=== PATIENT | female | born 1980 | race American Indian/Alaskan Native ===

== ENCOUNTER 2018-06-16 21:05 | Observation (INO) | payer MEDICAID ==
[2018-06-16 21:06] VITALS: BMI 25.9
[2018-06-16] MEDS ORDERED: Sodium Chloride 0.9% 1,000 ML IV ONE (22:31)
[2018-06-16 22:44] LABS: BASO # 0.1 K/uL (0.0-0.2); BASO % 0.5 % (0.0-2.0); EOS # 0.5 K/uL (0.0-0.7); EOS % 3.8 % (0.0-4.0); HEMOGLOBIN 13.8 g/dL (11.0-16.0); LYMPH % 22.3 % (20.0-40.0); MEAN CELL VOLUME 82.9 fL (81.0-99.0); MEAN CORPUSCULAR HEMOGLOBIN 28.4 pg (27.0-31.0); MEAN CORPUSCULAR HGB CONC 34.2 g/dL (33.0-37.0); MONO # 0.9 K/uL (0.0-0.8); MONO % 6.7 % (0.0-10.0); NEUT # 9.1 K/uL (1.8-7.0); NEUT % 66.7 % (50.0-75.0); NRBC % 0.1 % (0.0-2.0); RBC 4.87 Mil/uL (3.80-5.20); RED CELL DISTRIBUTION WIDTH 13.8 % (11.5-14.5); WHITE BLOOD COUNT 13.6 K/uL (4.8-10.8)
[2018-06-16 22:47] LABS: HCG,QUALITATIVE URINE NEGATIVE (NEGATIVE)
[2018-06-16] MEDS ORDERED: Sodium Chloride 0.9% 250 ML IV ONE (22:55)
[2018-06-16 23:00] LABS: SQUAMOUS EPITHIAL 2 /hpf (0-5); URINE BACTERIA RARE (<OCC); URINE BILIRUBIN NEGATIVE (NEGATIVE); URINE BLOOD 3+ (NEGATIVE); URINE CLARITY Clear (Clear); URINE COLOR Straw (YELLOW); URINE GLUCOSE (UA) NORMAL (Normal); URINE LEUKOCYTE ESTERASE NEG Leu/uL (Negative); URINE PROTEIN NEGATIVE (NEGATIVE); URINE UROBILINOGEN NORMAL mg/dL (0.2-1.0)
[2018-06-16 23:02] LABS: ALB/GLOB RATIO 1.4 (1.0-2.1); ALBUMIN 4.2 g/dL (3.5-5.0); ALT/SGPT 21 U/L (9-52); AST/SGOT 18 U/L (14-36); BLOOD UREA NITROGEN 9 mg/dL (7-17); CALCIUM 8.7 mg/dl (8.6-10.4); GFR NON-AFRICAN AMERICAN > 60
--- NOTE | 2018-06-16 23:02 | C.PDOC ---
History Of Present Illness 38 year old female, with no significant past medical history, presents to the ED for evaluation of left-sided flank and left upper and lower quadrant pain which began at around 1800 today. Patient states symptoms are constant. She notes she started her menses today. Patient denies fever, chills, nausea, vomiting, urinary symptoms or vaginal discharge. <Sofi Martinez - Last Filed: 06/17/18 00:18> History Per: Patient History/Exam Limitations: no limitations Onset/Duration Of Symptoms: Hrs Current Symptoms Are (Timing): Still Present Location Of Pain/Discomfort: Other (left upper and lower abdomen ) Radiation Of Pain To:: Flank (left) Quality Of Discomfort: "Pain" Associated Symptoms: denies: Fever, Chills, Nausea, Vomiting Additional History Per: Patient Abnormal Vaginal Bleeding: No <Sofi Martinez - Last Filed: 06/17/18 00:18> <Abraham Turcios - Last Filed: 06/17/18 00:33> Time Seen by Provider: 06/16/18 21:56 Chief Complaint (Nursing): Abdominal Pain Past Medical History Reviewed: Historical Data, Nursing Documentation, Vital Signs Vital Signs: Last Vital Signs Temp 98.8 F 06/16/18 21:16 Pulse 77 06/16/18 21:16 Resp 20 06/16/18 21:16 BP 103/77 06/16/18 21:16 Pulse Ox 98 06/16/18 21:16 - Medical History PMH: Back Problems Surgical History: Cholecystectomy - [facility] Procedures CLOSURE SKIN & SUBCUTANEOUS NEC (11/23/13) Family History: States: Unknown Family Hx - Social History Hx Tobacco Use: No Hx Alcohol Use: Yes Hx Substance Use: Yes - Immunization History Hx Tetanus Toxoid Vaccination: No Hx Influenza Vaccination: No Hx Pneumococcal Vaccination: No <Sofi Martinez - Last Filed: 06/17/18 00:18> Vital Signs: Last Vital Signs Temp 98.8 F 06/16/18 21:16 Pulse 77 06/16/18 21:16 Resp 20 06/16/18 21:16 BP 103/77 06/16/18 21:16 Pulse Ox 98 06/17/18 00:21 - [facility] Procedures CLOSURE SKIN & SUBCUTANEOUS NEC (11/23/13) <Abraham Turcios - Last Filed: 06/17/18 00:33> Review Of Systems Constitutional: Negative for: Fever, Chills Gastrointestinal: Positive for: Abdominal Pain (left upper and lower quadrants ). Negative for: Nausea, Vomiting Genitourinary: Negative for: Vaginal Discharge Musculoskeletal: Positive for: Other (left flank ) <Sofi Martinez - Last Filed: 06/17/18 00:18> Physical Exam - Physical Exam Appears: Non-toxic, No Acute Distress Skin: Normal Color, Warm, Dry Head: Atraumatic, Normacephalic Eye(s): bilateral: Normal Inspection Oral Mucosa: Moist Neck: Supple Chest: Symmetrical, No Deformity, No Tenderness Cardiovascular: Rhythm Regular, No Murmur Respiratory: Normal Breath Sounds, No Rales, No Rhonchi, No Wheezing Gastrointestinal/Abdominal: Soft, Tenderness (left upper and lower quadrants ), No Guarding, No Rebound Back: CVA Tenderness (left-sided ) Extremity: Normal ROM, Capillary Refill (less than 2 seconds ) Neurological/Psych: Oriented x3, Normal Speech, Normal Cognition <Sofi Martinez - Last Filed: 06/17/18 00:18> ED Course And Treatment - Laboratory Results Result Diagrams: 06/16/18 22:39 06/16/18 22:39 O2 Sat by Pulse Oximetry: 98 (on RA ) Pulse Ox Interpretation: Normal <Sofi Martinez - Last Filed: 06/17/18 00:18> - Laboratory Results Result Diagrams: 06/16/18 22:39 06/16/18 22:39 <Abraham Turcios E - Last Filed: 06/17/18 00:33> Medical Decision Making Medical Decision Making: Progress: Bloodwork, urinalysis, CT A/P ordered and reviewed. Toradol IVP and IV Fluids given. <Sofi Martinez - Last Filed: 06/17/18 00:18> Medical Decision Makin: signed over from 1-1 AM , to f/u CT results and adm sudden LUQ pain, no n/v ? alcohol use- "1 beer/day" epigastric pain treated with morphine CT ? mild L renal collecting system dilation + mild pancreatic tail inflammation 0030: d/w Dr. Lopez- Medicine Testing Specialist- ok to admit. <Abraham Turcios E - Last Filed: 06/17/18 00:33> Disposition - Disposition Disposition Time: 00:20 <Sofi Martinez - Last Filed: 06/17/18 00:18> Doctor Will See Patient In The: Hospital Counseled Patient/Family Regarding: Studies Performed, Diagnosis - Disposition Disposition Time: 00:30 <Abraham Turcios - Last Filed: 06/17/18 00:33> - Disposition Disposition: HOSPITALIZED Condition: GOOD - Clinical Impression Clinical Impression: Pancreatitis - Scribe Statement The provider has reviewed the documentation as recorded by the Scribe (Lynn pickett) Provider Attestation: All medical record entries made by the Scribe were at my direction and personally dictated by me. I have reviewed the chart and agree that the record accurately reflects my personal performance of the history, physical exam, medical decision making, and the department course for this patient. I have also personally directed, reviewed, and agree with the discharge instructions and disposition. <Sofi Martinez - Last Filed: 06/17/18 00:18> Physician Patient Turnover Patient Signed Over To: Abraham Turcios (admit for acute pancreatitis) <Sofi Martinez - Last Filed: 06/17/18 00:18>
[2018-06-16 23:22] LABS: LIPASE 4339 U/L (23-300)
[2018-06-17] MEDS ORDERED: Morphine 4 MG/ML VIAL IV ONE (00:17)
[2018-06-17] MEDS ORDERED: Dextrose 5%/0.9% NS 1,000 ML IV STA (00:34)
[2018-06-17] MEDS ORDERED: Dextrose 5%/0.9% NS 1,000 ML IV ONE (00:37)
[2018-06-17] MEDS ORDERED: Morphine 4 MG/ML VIAL ONE (01:15)
[2018-06-17] MEDS ORDERED: Thiamine 100 mg/ml Inj ONE (01:15)
[2018-06-17] MEDS: Thiamine 100 mg/ml Inj IV SCH ×2 (01:23→09:50)
[2018-06-17] MEDS ORDERED: Acetaminophen IV 1,000 MG in Premixed IV 1 EA IV PRN (07:21)
[2018-06-17 07:54] LABS: BASO # 0.1 K/uL (0.0-0.2); BASO % 0.6 % (0.0-2.0); EOS # 0.5 K/uL (0.0-0.7); EOS % 4.1 % (0.0-4.0); LYMPH # 4.1 K/uL (1.0-4.3); LYMPH % 36.8 % (20.0-40.0); MEAN CELL VOLUME 83.5 fL (81.0-99.0); MEAN CORPUSCULAR HEMOGLOBIN 28.1 pg (27.0-31.0); MEAN CORPUSCULAR HGB CONC 33.6 g/dL (33.0-37.0); MEAN PLATELET VOLUME 9.3 fL (7.2-11.7); MONO # 0.8 K/uL (0.0-0.8); MONO % 6.9 % (0.0-10.0); NEUT # 5.7 K/uL (1.8-7.0); NEUT % 51.6 % (50.0-75.0); RBC 4.27 Mil/uL (3.80-5.20)
[2018-06-17] MEDS: Dextrose 5%/0.9% NS 1,000 ML IV SCH ×3 (08:20→23:00)
[2018-06-17 08:27] LABS: ALB/GLOB RATIO 1.2 (1.0-2.1); ALT/SGPT 18 U/L (9-52); AMYLASE 287 U/L (30-110); AST/SGOT 16 U/L (14-36); BLOOD UREA NITROGEN 6 mg/dL (7-17); GFR NON-AFRICAN AMERICAN > 60
[2018-06-17] MEDS: HYDROmorphone 0.5 mg/0.5 ml ISec IVP PRN ×3 (09:49→21:18)
--- NOTE | 2018-06-17 10:21 | CT ---
Date of service: 06/16/2018 PROCEDURE: CT Abdomen and Pelvis without intravenous contrast HISTORY: left flank tenderness COMPARISON: None. TECHNIQUE: Multiple contiguous axial images were performed through the abdomen and pelvis without the use of intravenous contrast. Subsequently, sagittal and coronal images were obtained. Radiation dose: Total exam DLP = 276.44 mGy-cm. This CT exam was performed using one or more of the following dose reduction techniques: Automated exposure control, adjustment of the mA and/or kV according to patient size, and/or use of iterative reconstruction technique. FINDINGS: LOWER THORAX: Unremarkable. LIVER: Unremarkable. No gross lesion or ductal dilatation. GALLBLADDER AND BILE DUCTS: Prior cholecystectomy. PANCREAS: Thickening and heterogeneity of the pancreas with some adjacent peripancreatic fat stranding which may represent an acute pancreatitis. Clinical correlation. SPLEEN: Unremarkable. ADRENALS: Unremarkable. No mass. KIDNEYS AND URETERS: Mild fullness of the right renal collecting system. Mild fullness of the left renal collecting system. VASCULATURE: Unremarkable. No aortic aneurysm. No aortic atherosclerotic calcification or mural plaque present. BOWEL: Unremarkable. No obstruction. No gross mural thickening. Scattered areas of underdistention throughout the left hemicolon. APPENDIX: Unremarkable. Normal appendix. PERITONEUM: Small amount of free fluid within the posterior pelvic cul-de-sac. LYMPH NODES: Few shotty para-aortic and inguinal lymph nodes. Few shotty mesenteric lymph nodes. BLADDER: Unremarkable. REPRODUCTIVE: Heterogeneous and prominent uterus. BONES: No acute fracture. OTHER FINDINGS: None. IMPRESSION: Thickening and heterogeneity of the pancreas with some adjacent peripancreatic fat stranding and fluid most prominent at the tail which may represent an acute pancreatitis. Clinical correlation. Small amount of free fluid within the posterior pelvic cul-de-sac. Mild fullness of the left renal collecting system. Possible recent passage of a calculus. Correlation with urinalysis is suggested. Scattered areas of underdistention throughout the left hemicolon. A preliminary report was generated at 12:16 a.m. on 06/17/[address] Yamilex Bright from [employer]
--- NOTE | 2018-06-17 11:06 | CP.PCM.PN ---
Subjective - Date & Time of Evaluation Date of Evaluation: 06/17/18 Time of Evaluation: 11:06 - Subjective Subjective: H&P dictated # [id number] Objective - Vital Signs/Intake and Output Vital Signs (last 24 hours): Temp Pulse Resp BP Pulse Ox 98.1 F 65 20 96/67 L 97 06/17/18 08:21 06/17/18 08:21 06/17/18 08:21 06/17/18 08:21 06/17/18 08:21 - Medications Medications: Current Medications Hydromorphone HCl (Dilaudid) 0.5 mg IVP Q4H PRN PRN Reason: moderate to severe pain Last Admin: 06/17/18 09:49 Dose: 0.5 mg Dextrose/Sodium Chloride (Dextrose 5%/0.9% Ns 1000 Ml) 1,000 mls @ 150 mls/hr IV .Q6H40M ON LICENSE OF [facility] Last Admin: 06/17/18 08:20 Dose: 150 mls/hr Influenza Virus Vaccine (Fluzone Quad [id number]) 60 mcg IM .ONCE ONE Stop: 06/18/18 10:01 Pneumococcal Polyvalent Vaccine (Pneumovax 23 Vaccine) 0.5 ml IM .ONCE ONE Stop: 06/18/18 10:01 Thiamine HCl (Vitamin B1 Inj) 100 mg IV DAILY ON LICENSE OF [facility] Last Admin: 06/17/18 09:50 Dose: 100 mg - Labs Labs: 06/17/18 07:46 06/17/18 07:46
--- NOTE | 2018-06-17 11:26 | CP.PCM.CON ---
History of Present Illness - History of Present Illness History of Present Illness: 38 yo female admitted with increasing diffuse upper abdominal pain radiating to the left upper quadrant and left flank. Elevation of Lipase and amylase noted and CT findings suggestive of some inflammation and landon-pancreatic stranding in the tail of the pancreas c/w acute pancreatitis. Patient admits to 2-3 cans of beer several times per week but no binge drinking. No prior h/o hepatitis or pancreatitis. Had Lap Tosha and umbilical hernia repair in the past. Review of Systems - Cardiovascular Cardiovascular: absent: Chest Pain, Dyspnea, Leg Edema - Respiratory Respiratory: absent: Cough, Hemoptysis - Gastrointestinal Gastrointestinal: As Per HPI. absent: Cramping, Diarrhea, Heartburn, Hematemesis, Hematochezia, Melena, Nausea Past Patient History - Infectious Disease Hx of Infectious Diseases: None - Past Social History Smoking Status: Light Smoker < 10 Cigarettes Daily Alcohol: < 2 Drinks/Day Drugs: Denies - GASTROINTESTINAL Hx Colitis: Yes - PSYCHIATRIC Hx Substance Use: Yes - SURGICAL HISTORY Hx Cholecystectomy: Yes - ANESTHESIA Hx Anesthesia: Yes Hx Anesthesia Reactions: No Meds Allergies/Adverse Reactions: Allergies Allergy/AdvReac Type Severity Reaction Status Date / Time No Known Allergies Allergy Verified 06/16/18 21:22 - Medications Medications: Current Medications Hydromorphone HCl (Dilaudid) 0.5 mg IVP Q4H PRN PRN Reason: moderate to severe pain Last Admin: 06/17/18 09:49 Dose: 0.5 mg Dextrose/Sodium Chloride (Dextrose 5%/0.9% Ns 1000 Ml) 1,000 mls @ 150 mls/hr IV .Q6H40M [facility] Last Admin: 06/17/18 08:20 Dose: 150 mls/hr Potassium Chloride (Potassium Chloride 10 Meq/100 Ml) 10 meq in 100 mls @ 100 mls/hr IVPB Q1H [facility] Stop: 06/17/18 13:14 Influenza Virus Vaccine (Fluzone Quad [id number]) 60 mcg IM .ONCE ONE Stop: 06/18/18 10:01 Pneumococcal Polyvalent Vaccine (Pneumovax 23 Vaccine) 0.5 ml IM .ONCE ONE Stop: 06/18/18 10:01 Thiamine HCl (Vitamin B1 Inj) 100 mg IV DAILY [facility] Last Admin: 06/17/18 09:50 Dose: 100 mg Physical Exam - Constitutional Appears: No Acute Distress - Head Exam Head Exam: ATRAUMATIC, NORMOCEPHALIC - Eye Exam Eye Exam: EOMI, PERRL - Respiratory Exam Respiratory Exam: Clear to Auscultation Bilateral, NORMAL BREATHING PATTERN - Cardiovascular Exam Cardiovascular Exam: REGULAR RHYTHM, +S1. absent: Rubs, Systolic Murmur - GI/Abdominal Exam GI & Abdominal Exam: Normal Bowel Sounds, Soft, Tenderness. absent: Distended, Firm, Mass, Rebound Additional comments: Mild LUQ tenderness to deep palpation, no mass or rebound. no organomegaly. - Rectal Exam Rectal Exam: Deferred - Extremities Exam Extremities exam: Positive for: normal inspection - Neurological Exam Neurological exam: Alert, Oriented x3 - Psychiatric Exam Psychiatric exam: Normal Affect, Normal Mood - Skin Skin Exam: Dry, Warm Results - Vital Signs Recent Vital Signs: Last Vital Signs Temp 98.1 F 06/17/18 08:21 Pulse 65 06/17/18 08:21 Resp 20 06/17/18 08:21 BP 96/67 L 06/17/18 08:21 Pulse Ox 97 06/17/18 08:21 - Labs Result Diagrams: 06/17/18 07:46 06/17/18 07:46 Labs: Laboratory Results - last 24 hr 06/16/18 06/16/18 06/16/18 22:28 22:39 22:39 WBC 13.6 H RBC 4.87 Hgb 13.8 D Hct 40.4 MCV 82.9 D MCH 28.4 MCHC 34.2 RDW 13.8 Plt Count 257 MPV 9.0 Neut % (Auto) 66.7 Lymph % (Auto) 22.3 Wallace % (Auto) 6.7 Eos % (Auto) 3.8 Baso % (Auto) 0.5 Neut # (Auto) 9.1 H Lymph # (Auto) 3.0 Wallace # (Auto) 0.9 H Eos # (Auto) 0.5 Baso # (Auto) 0.1 Sodium 136 Potassium 3.6 Chloride 104 Carbon Dioxide 26 Anion Gap 10 BUN 9 Creatinine 0.7 Est GFR ( Amer) > 60 Est GFR (Non-Af Amer) > 60 Random Glucose 95 Calcium 8.7 Total Bilirubin 0.6 AST 18 ALT 21 Alkaline Phosphatase 65 Total Protein 7.0 Albumin 4.2 Globulin 2.9 Albumin/Globulin Ratio 1.4 Amylase Lipase 4339 H Urine Color Straw Urine Clarity Clear Urine pH 7.0 Ur Specific Bethany 1.005 Urine Protein Negative Urine Glucose (UA) Normal Urine Ketones Negative Urine Blood 3+ H Urine Nitrate Negative Urine Bilirubin Negative Urine Urobilinogen Normal Ur Leukocyte Esterase Neg Urine WBC (Auto) 2 Urine RBC (Auto) 5 H Ur Squamous Epith Cells 2 Urine Bacteria Rare Urine HCG, Qual Negative Alcohol, Quantitative 06/17/18 06/17/18 06/17/18 01:38 07:46 07:46 WBC 11.0 H RBC 4.27 Hgb 12.0 Hct 35.6 MCV 83.5 MCH 28.1 MCHC 33.6 RDW 14.0 Plt Count 217 MPV 9.3 Neut % (Auto) 51.6 Lymph % (Auto) 36.8 Wallace % (Auto) 6.9 Eos % (Auto) 4.1 H Baso % (Auto) 0.6 Neut # (Auto) 5.7 Lymph # (Auto) 4.1 Wallace # (Auto) 0.8 Eos # (Auto) 0.5 Baso # (Auto) 0.1 Sodium 140 Potassium 3.3 L Chloride 104 Carbon Dioxide 28 Anion Gap 11 BUN 6 L Creatinine 0.7 Est GFR ( Amer) > 60 Est GFR (Non-Af Amer) > 60 Random Glucose 104 Calcium 8.0 L Total Bilirubin 0.6 AST 16 ALT 18 Alkaline Phosphatase 43 Total Protein 5.6 L Albumin 3.0 L D Globulin 2.5 Albumin/Globulin Ratio 1.2 Amylase 287 H D Lipase Urine Color Urine Clarity Urine pH Ur Specific Bethany Urine Protein Urine Glucose (UA) Urine Ketones Urine Blood Urine Nitrate Urine Bilirubin Urine Urobilinogen Ur Leukocyte Esterase Urine WBC (Auto) Urine RBC (Auto) Ur Squamous Epith Cells Urine Bacteria Urine HCG, Qual Alcohol, Quantitative < 10 - Imaging and Cardiology CT scan - abdomen Status: Image reviewed by me, Report reviewed by me Assessment & Plan (1) Acute pancreatitis Assessment and Plan: Patient with lab and CT findings c/w mild pancreatitis. ?Etoh though patient reports only moderate social ingeston. Clinically improved. No evidence of gallstones or dilated ducts as patient has had Lap Tosha already. IV fluids and advance diet when pain free. Abstinence from alcohol Status: Acute (2) LUQ pain Assessment and Plan: as above Status: Acute (3) Abnormal CT of the abdomen Assessment and Plan: as above Status: Acute
[2018-06-17 12:05] LABS: HDL CHOLESTEROL 37 mg/dL (30-70); LIPASE 1477 U/L (23-300)
[2018-06-17 12:16] LABS: LDL CHOLESTEROL 103 mg/dL (0-129)
[2018-06-17] MEDS: Potassium & Sodium Phosphate PO SCH ×2 (17:39→22:00)
--- NOTE | 2018-06-18 02:00 | HP ---
CHIEF COMPLAINT: Epigastric pain radiating to the left side which started Monday evening, associated with vomiting. HISTORY OF PRESENT ILLNESS: Ms. Miranda is a 38-year-old female with history of gestational diabetes about 2 years ago, not on any medication, does not follow with any family care physician, came into the ED for progressive worsening of epigastric pain radiating to the left side of the body. As per the patient, she had 124-ounce can of beer on which she usually takes 3 to 4 per week. She started noticing epigastric pain on Monday around 6 p.m. where she was outside. The pain was 10/10, continuous pain, radiating to the left side and to the back, associated with nausea. Had one episode of vomiting. Her pain got so worse yesterday and not able to tolerate which made her to come to the emergency room. In the ED, the patient was found to be having pancreatitis, and the patient is being admitted for further management. When I examined her, she denied any headaches, dizziness. Denied any chest pain, shortness of breath, or wheezing. Denied any nausea or vomiting. Her pain is better, 7/10. Denied any diarrhea or constipation. Denied any other urinary complaints or any other neurological symptoms. PAST MEDICAL HISTORY: Denies any past medical history. PAST SURGICAL HISTORY: Underwent cholecystectomy along with umbilical hernia repair and two C-sections. FAMILY HISTORY: Nothing contributory to the present illness. 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 SOCIAL HISTORY: She smokes 1 cigarette per day. Drinks beer 3 to 4 times a week. Denies any other drug abuse. ALLERGIES: NO KNOWN DRUG ALLERGIES. MEDICATIONS: She does not take any medications at home. REVIEW OF SYSTEMS: As described in history of present illness, all other systems reviewed and were found to be negative on examination. PHYSICAL EXAMINATION: GENERAL: A young female, lying in bed, in no acute distress. VITAL SIGNS: Blood pressure 111/70, pulse 58, respirations 20, temperature 98.2 degree Fahrenheit, O2 sat 99% on room air. HEENT: Pupils are equal, round, and reacting to light and accommodation. Extraocular muscles are intact. No icterus. No pallor. No oral thrush. No pharyngeal congestion. NECK: Supple. No JVD. CARDIOPULMONARY: S1, S2 present, regular LUNGS: Bilateral clear breath sounds. No wheezing. No rhonchi. ABDOMEN: Soft. Bowel sounds present. Epigastric tenderness noted. Minimal guarding. No rigidity. No rebound tenderness noted. BLOOD DONOR RECRUITER: Alert, awake, oriented x3. No focal deficits noted. EXTREMITIES: No edema. Palpable peripheral pulses. LABORATORY DATA: Labs from the ED, WBC 13.6, hemoglobin 13.8, hematocrit 40.4, and platelets 257,000. Sodium 136, potassium 3.6, chloride 104, bicarb 26, BUN 9, creatinine 0.7, glucose 95, calcium 8.7, total bilirubin 0.6, AST 18, ALT 21, alkaline phosphatase 65, total protein 7, albumin 4.2, globulin 2.9, lipase 4339, lipase from this morning 1477, amylase 287, triglycerides 86, cholesterol 148, LDL 103, HDL 37, phosphorus is 2.2, calcium 8, potassium is 3.3. Cultures done from ED, abdomen and pelvis CT, consistent with thickening and heterogeneity of the pancreas with some adjacent peripancreatic fat stranding and fluid most prominent at the tail which may represent an acute pancreatitis, small amount of free fluid within the posterior pelvic cul-de-sac. Mild fullness of the left renal collecting system, possible recent passage of the calculus, scattered areas of under distention throughout the left hemicolon. ASSESSMENT AND PLAN: A young female with no significant past medical history other than drinking beer 3 to 4 times a week, last drink was who started having epigastric abdominal pain Monday evening which progressed and got worse to a point where she could not take the pain, associated with one vomiting in the ED. The patient was found to be having elevated lipase level and CT consistent with acute pancreatitis, and patient is being admitted further management. 1. Acute pancreatitis, secondary to ethanol use. 2. Hypokalemia. 3. Hypophosphatemia, slightly elevated WBC count. PLAN: The patient is being admitted to the hospital. The patient was kept n.p.o. at night. As her lipase was improving, we will start clear liquids. We will continue with hydration, D5 normal saline at 155 mL/hour. Continue with thiamine 100 mg IV daily. We will continue with Dilaudid for pain. Repeat labs in a.m. Supplement potassium. Supplement phosphorus. We will repeat labs in a.m. Discussed with GI. Agree with plan. We will add further recommendation as her clinical course progresses. Lorraine Sheehan MD
[2018-06-18] MEDS: HYDROmorphone 0.5 mg/0.5 ml ISec IVP PRN ×4 (03:19→19:28)
[2018-06-18] MEDS: Dextrose 5%/0.9% NS 1,000 ML IV SCH ×4 (05:07→21:48)
[2018-06-18 07:01] LABS: BASO % 0.5 % (0.0-2.0); EOS % 4.3 % (0.0-4.0); HEMOGLOBIN 11.9 g/dL (11.0-16.0); LYMPH # 3.4 K/uL (1.0-4.3); LYMPH % 39.5 % (20.0-40.0); MEAN CELL VOLUME 83.8 fL (81.0-99.0); MEAN CORPUSCULAR HGB CONC 33.5 g/dL (33.0-37.0); MEAN PLATELET VOLUME 9.4 fL (7.2-11.7); MONO # 0.6 K/uL (0.0-0.8); MONO % 6.4 % (0.0-10.0); NEUT # 4.3 K/uL (1.8-7.0); NEUT % 49.3 % (50.0-75.0); NRBC % 0.1 % (0.0-2.0); RBC 4.26 Mil/uL (3.80-5.20); RED CELL DISTRIBUTION WIDTH 14.1 % (11.5-14.5); WHITE BLOOD COUNT 8.7 K/uL (4.8-10.8)
[2018-06-18 07:02] LABS: EOS # 0.4 K/uL (0.0-0.7)
--- NOTE | 2018-06-18 08:04 | CP.PCM.PN ---
Subjective - Date & Time of Evaluation Date of Evaluation: 06/18/18 Time of Evaluation: 08:02 - Subjective Subjective: Less pain. Labs pending Objective - Vital Signs/Intake and Output Vital Signs (last 24 hours): Temp Pulse Resp BP Pulse Ox 97.6 F 65 16 103/64 98 06/18/18 00:00 06/18/18 00:00 06/18/18 00:00 06/18/18 00:00 06/18/18 00:00 Intake and Output: 06/18/18 06/18/18 06:59 18:59 Intake Total 1200 Balance 1200 - Medications Medications: Current Medications Hydromorphone HCl (Dilaudid) 0.5 mg IVP Q4H PRN PRN Reason: moderate to severe pain Last Admin: 06/18/18 03:19 Dose: 0.5 mg Dextrose/Sodium Chloride (Dextrose 5%/0.9% Ns 1000 Ml) 1,000 mls @ 150 mls/hr IV .Q6H40M [facility] Last Admin: 06/18/18 05:07 Dose: 150 mls/hr Influenza Virus Vaccine (Fluzone Quad [id number]) 60 mcg IM .ONCE ONE Stop: 06/18/18 10:01 Pneumococcal Polyvalent Vaccine (Pneumovax 23 Vaccine) 0.5 ml IM .ONCE ONE Stop: 06/18/18 10:01 Potassium Phos/Sodium Phos (Neutra-Phos) 1 pkt PO QID [facility] Stop: 06/19/18 18:01 Last Admin: 06/17/18 22:00 Dose: 1 pkt Thiamine HCl (Vitamin B1 Inj) 100 mg IV DAILY [facility] Last Admin: 06/17/18 09:50 Dose: 100 mg - Labs Labs: 06/18/18 06:43 06/17/18 07:46 - Constitutional Appears: No Acute Distress - Head Exam Head Exam: ATRAUMATIC, NORMOCEPHALIC - Eye Exam Eye Exam: EOMI, PERRL - Respiratory Exam Respiratory Exam: NORMAL BREATHING PATTERN - Cardiovascular Exam Cardiovascular Exam: REGULAR RHYTHM - GI/Abdominal Exam GI & Abdominal Exam: Soft, Normal Bowel Sounds. absent: Tenderness Assessment and Plan (1) Acute pancreatitis Assessment & Plan: Continue supportive care Abstain from all Etoh Advance diet and discharge planning Status: Acute (2) LUQ pain Status: Acute (3) Abnormal CT of the abdomen Status: Acute
[2018-06-18 08:11] LABS: ALB/GLOB RATIO 1.1 (1.0-2.1); ALBUMIN 2.9 g/dL (3.5-5.0); ALT/SGPT 24 U/L (9-52); AST/SGOT 20 U/L (14-36); BLOOD UREA NITROGEN 3 mg/dL (7-17); CALCIUM 8.2 mg/dl (8.6-10.4); GFR NON-AFRICAN AMERICAN > 60; LIPASE 404 U/L (23-300)
[2018-06-18 08:20] VITALS: RESP 20
[2018-06-18] MEDS ORDERED: Pneumococcal 23-Valent Vaccine IM ONE (10:00)
[2018-06-18] MEDS ORDERED: Influenza Vaccine 60 MCG/0.5 ML SYR (3 yr & up) IM ONE (10:00)
[2018-06-18] MEDS: Potassium & Sodium Phosphate PO SCH ×4 (10:40→21:38)
[2018-06-18] MEDS: Thiamine 100 mg/ml Inj IV SCH (10:41)
--- NOTE | 2018-06-18 15:12 | CP.PCM.PN ---
Subjective - Date & Time of Evaluation Date of Evaluation: 06/18/18 Time of Evaluation: 15:12 - Subjective Subjective: Progress note dictated #[id number] Objective - Vital Signs/Intake and Output Vital Signs (last 24 hours): Temp Pulse Resp BP Pulse Ox 98.9 F 62 20 143/85 99 06/18/18 08:19 06/18/18 08:45 06/18/18 08:19 06/18/18 08:19 06/18/18 08:19 Intake and Output: 06/18/18 06/18/18 06:59 18:59 Intake Total 1200 Balance 1200 - Medications Medications: Current Medications Hydromorphone HCl (Dilaudid) 0.5 mg IVP Q4H PRN PRN Reason: moderate to severe pain Last Admin: 06/18/18 12:49 Dose: 0.5 mg Dextrose/Sodium Chloride (Dextrose 5%/0.9% Ns 1000 Ml) 1,000 mls @ 150 mls/hr IV .Q6H40M [facility] Last Admin: 06/18/18 12:31 Dose: 150 mls/hr Potassium Phos/Sodium Phos (Neutra-Phos) 1 pkt PO QID [facility] Stop: 06/19/18 18:01 Last Admin: 06/18/18 10:40 Dose: 1 pkt Thiamine HCl (Vitamin B1 Inj) 100 mg IV DAILY [facility] Last Admin: 06/18/18 10:41 Dose: 100 mg - Labs Labs: 06/18/18 06:43 06/18/18 06:43
[2018-06-19] MEDS: Dextrose 5%/0.9% NS 1,000 ML IV SCH ×5 (00:30→20:10)
--- NOTE | 2018-06-19 01:35 | PN ---
DATE: 06/18/2018 SUBJECTIVE: The patient was seen and examined at bedside. The patient is still complaining of epigastric pain, requiring IV pain medication every 4 hours. Complaining of pain after eating. Denies any nausea or vomiting. Denies any other new complaints. PHYSICAL EXAMINATION: GENERAL: Young female, lying in bed, in no acute distress. VITAL SIGNS: Blood pressure 122/75, pulse 68, respirations 20, temperature 98.2 degrees Fahrenheit, and O2 sat is 97% on room air. HEENT: Pupils equal, round, and reacting to light and accommodation. Extraocular muscles intact. No icterus. No pallor. No oral thrush. No pharyngeal congestion. NECK: Supple. No JVD. LUNGS: Bilateral vesicular breath sounds. No wheezing. No rhonchi. CARDIOVASCULAR SYSTEM: S1 and S2 present, regular. ABDOMEN: Soft. Epigastric minimal tenderness noted. No guarding. No rigidity. No rebound tenderness noted. CENTRAL NERVOUS SYSTEM: Alert, awake, oriented x3. No focal deficits noted. EXTREMITIES: No edema. Palpable peripheral pulses. MEDICATIONS: Include D5 normal saline at 150 mL an hour, Dilaudid 0.5 mg IV every 4 hours as needed, Neutra-Phos 1 pack p.o. four times a day, and thiamine 100 mg IV daily. LABORATORY DATA: Labs from this morning: WBC 8.7, hemoglobin 11.9, hematocrit 35.7, platelets 204. Sodium 138, potassium 3.8, chloride 104, bicarb 27, BUN 3, creatinine 0.6, glucose 109, calcium 8.2, phosphorus 2.4, magnesium 1.9. AST 20, ALT 24, alkaline phosphatase 45, total protein 5.5, albumin 2.9. ASSESSMENT AND PLAN: A young female with no significant past medical history other than drinking beer 3 to 4 times a week, admitted for acute pancreatitis, hypokalemia, hypophosphatemia, hypophosphatemia and hypokalemia corrected with persistent epigastric pain, improving lipase levels, tolerating p.o. feeds, but requiring continuous pain medication. We will decrease the frequency of the pain medication. Recommended the same thing to the patient. We will continue with current pain medication, IV fluids. If the patient clinically improves and tolerating p.o. feeds and cleared by Gastrointestinal, we will plan discharging the patient home. Lorraine Sheehan MD
[2018-06-19] MEDS: HYDROmorphone 0.5 mg/0.5 ml ISec IVP PRN ×3 (01:43→12:30)
--- NOTE | 2018-06-19 09:20 | CP.PCM.PN ---
Subjective - Date & Time of Evaluation Date of Evaluation: 06/19/18 Time of Evaluation: 09:18 - Subjective Subjective: Tolerating diet with minimal pain, No N/V. Objective - Vital Signs/Intake and Output Vital Signs (last 24 hours): Temp Pulse Resp BP Pulse Ox 98.9 F 67 20 102/63 98 06/19/18 07:46 06/19/18 07:46 06/19/18 07:46 06/19/18 07:46 06/19/18 07:46 Intake and Output: 06/19/18 06/19/18 06:59 18:59 Intake Total 2520 Balance 2520 - Medications Medications: Current Medications Hydromorphone HCl (Dilaudid) 0.5 mg IVP Q4H PRN PRN Reason: moderate to severe pain Last Admin: 06/19/18 06:51 Dose: 0.5 mg Dextrose/Sodium Chloride (Dextrose 5%/0.9% Ns 1000 Ml) 1,000 mls @ 150 mls/hr IV .Q6H40M [facility] Last Admin: 06/19/18 07:10 Dose: Not Given Potassium Phos/Sodium Phos (Neutra-Phos) 1 pkt PO QID [facility] Stop: 06/19/18 18:01 Last Admin: 06/18/18 21:38 Dose: 1 pkt Thiamine HCl (Vitamin B1 Inj) 100 mg IV DAILY [facility] Last Admin: 06/18/18 10:41 Dose: 100 mg - Labs Labs: 06/18/18 06:43 06/18/18 06:43 - Constitutional Appears: No Acute Distress - Head Exam Head Exam: ATRAUMATIC, NORMOCEPHALIC - Respiratory Exam Respiratory Exam: NORMAL BREATHING PATTERN - Cardiovascular Exam Cardiovascular Exam: REGULAR RHYTHM, +S1 - GI/Abdominal Exam GI & Abdominal Exam: Soft, Normal Bowel Sounds. absent: Distended, Guarding, Tenderness, Mass, Rebound - Extremities Exam Extremities Exam: Normal Inspection Assessment and Plan (1) Acute pancreatitis Assessment & Plan: Patient is clinically stable and tolerating diet. Consider discharge to out patient follow up as needed. Abstain from all alcohol ingestion recommended to patient to facilitate healing. Repeat imaging study in one month as outpatient to assess resolution, r/o pseudocyst Recall as needed. Thank you. Status: Acute (2) LUQ pain Status: Resolved (3) Abnormal CT of the abdomen Status: Acute
[2018-06-19] MEDS: Thiamine 100 mg/ml Inj IV SCH (10:43)
[2018-06-19] MEDS: Potassium & Sodium Phosphate PO SCH ×3 (10:46→17:52)
--- NOTE | 2018-06-19 16:34 | CP.PCM.PN ---
Subjective - Date & Time of Evaluation Date of Evaluation: 06/19/18 Time of Evaluation: 16:34 - Subjective Subjective: Progress note dictated #[id number] Objective - Vital Signs/Intake and Output Vital Signs (last 24 hours): Temp Pulse Resp BP Pulse Ox 98.9 F 67 20 102/63 98 06/19/18 07:46 06/19/18 07:46 06/19/18 07:46 06/19/18 07:46 06/19/18 07:46 Intake and Output: 06/19/18 06/19/18 06:59 18:59 Intake Total 2520 1550 Balance 2520 1550 - Medications Medications: Current Medications Hydromorphone HCl (Dilaudid) 0.5 mg IVP Q4H PRN PRN Reason: moderate to severe pain Last Admin: 06/19/18 12:30 Dose: 0.5 mg Dextrose/Sodium Chloride (Dextrose 5%/0.9% Ns 1000 Ml) 1,000 mls @ 150 mls/hr IV .Q6H40M [facility] Last Admin: 06/19/18 14:08 Dose: 150 mls/hr Potassium Phos/Sodium Phos (Neutra-Phos) 1 pkt PO QID [facility] Stop: 06/19/18 18:01 Last Admin: 06/19/18 14:07 Dose: 1 pkt Thiamine HCl (Vitamin B1 Inj) 100 mg IV DAILY [facility] Last Admin: 06/19/18 10:43 Dose: 100 mg - Labs Labs: 06/18/18 06:43 06/18/18 06:43
[2018-06-19 16:49] LABS: BASO % 0.5 % (0.0-2.0); EOS # 0.5 K/uL (0.0-0.7); EOS % 6.1 % (0.0-4.0); HEMOGLOBIN 12.5 g/dL (11.0-16.0); LYMPH # 3.2 K/uL (1.0-4.3); LYMPH % 39.1 % (20.0-40.0); MEAN CELL VOLUME 82.9 fL (81.0-99.0); MEAN CORPUSCULAR HEMOGLOBIN 28.1 pg (27.0-31.0); MEAN CORPUSCULAR HGB CONC 33.9 g/dL (33.0-37.0); MONO # 0.6 K/uL (0.0-0.8); MONO % 6.9 % (0.0-10.0); NEUT # 3.9 K/uL (1.8-7.0); NEUT % 47.4 % (50.0-75.0); RBC 4.44 Mil/uL (3.80-5.20); RED CELL DISTRIBUTION WIDTH 13.6 % (11.5-14.5); WHITE BLOOD COUNT 8.1 K/uL (4.8-10.8)
[2018-06-19 17:09] LABS: ALB/GLOB RATIO 1.2 (1.0-2.1); ALBUMIN 3.2 g/dL (3.5-5.0); ALT/SGPT 25 U/L (9-52); AST/SGOT 21 U/L (14-36); BLOOD UREA NITROGEN 5 mg/dL (7-17); CALCIUM 8.4 mg/dl (8.6-10.4); GFR NON-AFRICAN AMERICAN > 60; LIPASE 94 U/L (23-300)
[2018-06-19] MEDS ORDERED: Potassium Chloride 20 mEq/15 ml LIQ UD PO ONE (21:41)
--- NOTE | 2018-06-20 00:24 | PN ---
DATE: 06/19/2018 SUBJECTIVE: The patient was seen and examined at bedside. The patient is still complaining of epigastric pain, requiring IV pain medications. Denies any nausea or vomiting. Tolerating p.o. feeds. Pain increasing with feeds. Denies any other complaints. PHYSICAL EXAMINATION GENERAL: Young female, lying in bed, in no acute distress. VITAL SIGNS: Blood pressure 102/61, pulse 66, respirations 20, temperature 98.2 degrees Fahrenheit, O2 sat is 99% on room air. HEENT: Pupils equal, round and reactive to light and accommodation. Extraocular muscles intact. No icterus. No pallor. No oral thrush. No pharyngeal congestion. NECK: Supple. No JVD. LUNGS: Bilateral vesicular breath sounds. No wheezing. No rhonchi. CARDIOVASCULAR SYSTEM: S1 and S2 present, regular. ABDOMEN: Soft . Bowel sounds present. Mild epigastric tenderness noted. No guarding. No rigidity. No rebound tenderness noted. CENTRAL NERVOUS SYSTEM: Alert, awake and oriented x3. No focal deficits noted. EXTREMITIES: No edema. Palpable peripheral pulses. MEDICATIONS: Include Tylenol 650 mg as needed, D5 normal saline at 150 mL an hour, thiamine 100 mg IV daily. LABORATORY DATA: From today, WBC 8.1, hemoglobin 12.5, hematocrit 36.8, platelets 213. Sodium 139, potassium 3.5, chloride 103, bicarb 28, BUN 5, creatinine 0.7, glucose 98, calcium 8.4, phosphorus 3.3, magnesium 1.8, total bilirubin 0.4, AST 21, ALT 25, alkaline phosphatase 47, total protein 5.8, albumin 3.2. Lipase is 94. ASSESSMENT AND PLAN: Young female with no significant past medical history, admitted for acute pancreatitis, hypokalemia and hypophosphatemia, resolved. We will hold pain medications and give Tylenol for pain. Continue with intravenous fluids. Supplement potassium. If the patient is able to tolerate p.o. feeds without the pain medication, we will plan discharging the patient home in a.m. Lorraine Sheehan MD
[2018-06-20] MEDS: Dextrose 5%/0.9% NS 1,000 ML IV SCH ×2 (03:10→03:52)
[2018-06-20 08:02] VITALS: BP 111/74; PULSE 55; TEMP 98.1; O2SAT 97
--- NOTE | 2018-06-20 09:49 | CP.PCM.PN ---
Subjective - Date & Time of Evaluation Date of Evaluation: 06/20/18 Time of Evaluation: 09:47 - Subjective Subjective: No new c/o. Enzymes all normal now. No pain after meals Objective - Vital Signs/Intake and Output Vital Signs (last 24 hours): Temp Pulse Resp BP Pulse Ox 98.1 F 55 L 20 111/74 97 06/20/18 07:59 06/20/18 07:59 06/20/18 07:59 06/20/18 07:59 06/20/18 07:59 Intake and Output: 06/20/18 06/20/18 06:59 18:59 Intake Total 1700 1500 Balance 1700 1500 - Medications Medications: Current Medications Acetaminophen (Tylenol 325mg Tab) 650 mg PO Q6 PRN PRN Reason: Pain, moderate (4-7) Last Admin: 06/19/18 17:51 Dose: 650 mg Thiamine HCl (Vitamin B1 Inj) 100 mg IV DAILY [facility] Last Admin: 06/19/18 10:43 Dose: 100 mg - Labs Labs: 06/19/18 16:43 06/19/18 16:43 - Constitutional Appears: No Acute Distress - Head Exam Head Exam: ATRAUMATIC, NORMOCEPHALIC - Eye Exam Eye Exam: EOMI, PERRL - Respiratory Exam Respiratory Exam: NORMAL BREATHING PATTERN - Cardiovascular Exam Cardiovascular Exam: REGULAR RHYTHM, +S1 - GI/Abdominal Exam GI & Abdominal Exam: Soft, Normal Bowel Sounds. absent: Guarding, Tenderness, Mass, Rebound - Extremities Exam Extremities Exam: Normal Inspection Assessment and Plan (1) Acute pancreatitis Assessment & Plan: Clinically stable for discharge from GI point of view Repeat CT Scan in one month to assess for resolution or need for further w/u including EUS. Low fat diet and no EtoH. Recall as needed. Thank you. Status: Resolved (2) LUQ pain Assessment & Plan: Resolved. Status: Resolved (3) Abnormal CT of the abdomen Assessment & Plan: as above Status: Acute
--- NOTE | 2018-06-20 10:18 | CP.PCM.PN ---
Subjective - Date & Time of Evaluation Date of Evaluation: 06/20/18 Time of Evaluation: 10:18 - Subjective Subjective: discharge summary dictated # [id number] Objective - Vital Signs/Intake and Output Vital Signs (last 24 hours): Temp Pulse Resp BP Pulse Ox 98.1 F 55 L 20 111/74 97 06/20/18 07:59 06/20/18 07:59 06/20/18 07:59 06/20/18 07:59 06/20/18 07:59 Intake and Output: 06/20/18 06/20/18 06:59 18:59 Intake Total 1700 1500 Balance 1700 1500 - Medications Medications: Current Medications Acetaminophen (Tylenol 325mg Tab) 650 mg PO Q6 PRN PRN Reason: Pain, moderate (4-7) Last Admin: 06/19/18 17:51 Dose: 650 mg Thiamine HCl (Vitamin B1 Inj) 100 mg IV DAILY [facility] Last Admin: 06/19/18 10:43 Dose: 100 mg - Labs Labs: 06/19/18 16:43 06/19/18 16:43
[2018-06-20] MEDS: Thiamine 100 mg/ml Inj IV SCH (11:30)
--- NOTE | 2018-06-21 08:56 | DS ---
DISCHARGE DIAGNOSES: Acute pancreatitis, improved; social alcohol use. HISTORY OF PRESENT ILLNESS: The patient is a 38-year-old female with history of gestational diabetes, not on any medication who drinks beer 3 to 4 times a week, admitted with epigastric pain, progressively getting worse with nausea. In the emergency department, the patient was found to be having elevated lipase and CT consistent with pancreatitis, and the patient is being admitted for further management. Today, the patient was feeling better. Denied any headache or dizziness. Denied any chest pain, shortness of breath or wheezing. Denied any nausea, vomiting, abdominal pain, diarrhea, or constipation. Denied any urinary complaints. Denied any leg pains or leg cramps. Denied any other neurologic symptoms. All other systems reviewed and were found to be negative. PHYSICAL EXAMINATION: GENERAL: On examination, young female lying in bed, in no acute distress. VITAL SIGNS: Blood pressure 111/74, pulse 55, respirations 20, temperature 98.1 degrees Fahrenheit. O2 saturation is 97% on room air. HEENT: Pupils are equal, round, and reacting to light and accommodation. Extraocular muscles intact. No icterus. No pallor. No oral thrush. No pharyngeal congestion. NECK: Supple. No JVD. LUNGS: Bilateral vesicular breath sounds. No wheezing. No rhonchi. CARDIOVASCULAR: S1, S2 present. Regular. ABDOMEN: Soft, nontender. Bowel sounds present. No guarding. No rigidity. No rebound tenderness noted. CENTRAL NERVOUS SYSTEM: Alert, awake, oriented x3. No focal deficits noted. EXTREMITIES: No edema. Palpable peripheral pulses. LABORATORY DATA: Labs done from yesterday: WBC 8.1, hemoglobin 12.5, hematocrit 36.8, platelets 213. Sodium 139, potassium 3.5, chloride 103, bicarbonate 28, BUN 5, creatinine 0.7, glucose 98, calcium 8.4, phosphorus 3.3, magnesium 1.8, AST 21, ALT 25, alkaline phosphatase 47, total protein 5.8, albumin 3.2, lipase 94. On admission, lipase . UA 3+ blood, alcohol negative. CT of the abdomen and pelvis consistent with acute pancreatitis. HOSPITAL COURSE: The patient was admitted to the hospital for acute pancreatitis. The patient was kept n.p.o. Started on IV fluids. Given pain medication. The patient was evaluated by GI. The patient's symptoms improved. Once the patient is feeling better, the patient was started on clear liquids, and the patient has been tolerating diet without any pain. As patient is advised hemodynamically stable and cleared by GI, the patient was discharged home. CONDITION UPON DISCHARGE: The patient is alert, awake, oriented x3 and hemodynamically stable at the time of discharge. DISCHARGE INSTRUCTIONS: Follow up with PMD. Follow up with GI. Needs repeat CAT scan in four weeks for monitoring resolution of the inflammatory changes. DIET: Low-fat diet. ACTIVITY: As tolerated. DISCHARGE MEDICATIONS: None. I advised the patient to follow up with PMD or come to the emergency room if any worsening of her symptoms. Lorraine Sheehan MD
== END 2018-06-20 13:33 | disposition home or self-care (01) ==
LOC: C.ER 21:05 → C.3T 06-17 00:33
PROVIDERS: ADMIT Internal Medicine; ATTEND Internal Medicine
DX: K85.20 Alcohol induced acute pancreatitis without necrosis or infection (principal); E83.39 Other disorders of phosphorus metabolism; E87.6 Hypokalemia; F10.10 Alcohol abuse, uncomplicated; F17.210 Nicotine dependence, cigarettes, uncomplicated; Z86.32 Personal history of gestational diabetes; Z90.49 Acquired absence of other specified parts of digestive tract
CPT/HCPCS: 36415; 74176; 80053; 80061; 80320; 81001; 82150; 82550; 83690; 83735; 84100; 84703; 85025; 96360; 96374; 99283; G0378; J1170; J1885; J2270; J3411; J3480; J7030; J7042

== ENCOUNTER 2018-09-15 08:46 | Emergency (ER) | payer SELFPAY ==
[2018-09-15 08:46] VITALS: BMI 25.9
[2018-09-15 09:26] LABS: BASO # 0.1 K/uL (0.0-0.2); BASO % 1.1 % (0.0-2.0); EOS # 0.5 K/uL (0.0-0.7); EOS % 3.7 % (0.0-4.0); HEMOGLOBIN 13.5 g/dL (11.0-16.0); LYMPH # 3.7 K/uL (1.0-4.3); LYMPH % 28.4 % (20.0-40.0); MEAN CORPUSCULAR HEMOGLOBIN 27.5 pg (27.0-31.0); MEAN CORPUSCULAR HGB CONC 33.1 g/dL (33.0-37.0); MEAN PLATELET VOLUME 9.4 fL (7.2-11.7); MONO # 0.8 K/uL (0.0-0.8); MONO % 6.4 % (0.0-10.0); NEUT # 7.9 K/uL (1.8-7.0); NEUT % 60.4 % (50.0-75.0); NRBC % 0.1 % (0.0-2.0); RBC 4.92 Mil/uL (3.80-5.20); RED CELL DISTRIBUTION WIDTH 13.7 % (11.5-14.5)
[2018-09-15 09:37] LABS: SQUAMOUS EPITHIAL 5 /hpf (0-5); URINE BACTERIA RARE (<OCC); URINE BILIRUBIN NEGATIVE (NEGATIVE); URINE BLOOD 3+ (NEGATIVE); URINE CLARITY Hazy (Clear); URINE COLOR Yellow (YELLOW); URINE GLUCOSE (UA) NORMAL (Normal); URINE LEUKOCYTE ESTERASE NEG Leu/uL (Negative); URINE PROTEIN 1+ mg/dL (NEGATIVE); URINE UROBILINOGEN NORMAL mg/dL (0.2-1.0)
[2018-09-15 09:48] LABS: ALB/GLOB RATIO 1.5 (1.0-2.1); ALBUMIN 4.2 g/dL (3.5-5.0); ALT/SGPT 15 U/L (9-52); AST/SGOT 23 U/L (14-36); BLOOD UREA NITROGEN 8 mg/dL (7-17); CALCIUM 8.8 mg/dl (8.6-10.4); GFR NON-AFRICAN AMERICAN > 60; LIPASE 61 U/L (23-300)
[2018-09-15] MEDS ORDERED: Potassium Chloride 20 mEq ER Tab PO STA (10:59)
[2018-09-15] MEDS ORDERED: cefTRIAXone (Rocephin) 250 mg Inj IM STA (11:02)
[2018-09-15] MEDS ORDERED: Potassium Chloride 20 mEq ER Tab PO ONE (11:12)
--- NOTE | 2018-09-15 11:20 | US ---
Date of service: 09/15/2018 HISTORY: . Beta HCG 640.31. LMP: 08/04/2018 COMPARISON: Comparison is made to the previous study dated 09/17/2015 TECHNIQUE: Transabdominal and endovaginal ultrasound examination of the pelvis was performed. FINDINGS: UTERUS: Measures 10.3 x 5.4 x 5.4 cm. Normal in size and appearance. No fibroid or other mass lesion seen. ENDOMETRIUM: Measures 10.7 mm in diameter. No evidence of intrauterine . CERVIX: No cervical abnormality identified. RIGHT OVARY: Measures 3 x 2.1 x 2.3 cm. There is heterogeneous rounded structure adjacent to the right ovary measures 1.8 x 1.9 x 1.6 centimeter. The possibility of right adnexal ectopic cannot be totally excluded. LEFT OVARY: Measures 2.5 x 2.1 x 2.3 cm. No solid mass. Normal flow. There is 1.1 x 0.7 x 0.9 centimeter cyst in the left adnexa likely represent prominent follicle. FREE FLUID: Small to moderate amount of free fluid in the pelvis noted. OTHER FINDINGS: None. IMPRESSION: No evidence of intrauterine . Complex heterogeneous rounded structure seen adjacent to the right ovary. The possibility of ectopic should be excluded. Small to moderate amount of free fluid in the pelvis noted.
--- NOTE | 2018-09-15 11:34 | C.PDOC ---
History Of Present Illness 38 year old female presents to the ED for evaluation of suprapubic abdominal pain associated with thin clear discharge for 4 days. The patient notes she is currently having unprotected sex, LMP of 1.15.19. Denies vaginal bleeding, fever, chills, nausea, vomiting, diarrhea, and any other associated symptoms. Time Seen by Provider: 09/15/18 09:08 Chief Complaint (Nursing): Abdominal Pain History Per: Patient History/Exam Limitations: no limitations Onset/Duration Of Symptoms: Days (x4) Current Symptoms Are (Timing): Still Present Location Of Pain/Discomfort: Suprapubic Associated Symptoms: denies: Fever, Chills, Nausea, Vomiting Abnormal Vaginal Bleeding: No Past Medical History Reviewed: Historical Data, Nursing Documentation, Vital Signs Vital Signs: Last Vital Signs Temp 97.9 F 09/15/18 08:58 Pulse 74 09/15/18 11:13 Resp 19 09/15/18 11:13 BP 112/75 09/15/18 11:13 Pulse Ox 97 09/15/18 11:13 - Medical History PMH: Back Problems, Pancreatitis Surgical History: Cholecystectomy - [facility] CLOSURE SKIN & SUBCUTANEOUS NEC (11/23/13) Family History: States: Unknown Family Hx - Social History Hx Tobacco Use: No Hx Alcohol Use: Yes Hx Substance Use: No - Immunization History Hx Tetanus Toxoid Vaccination: No Hx Influenza Vaccination: No Hx Pneumococcal Vaccination: No Review Of Systems Except As Marked, All Systems Reviewed And Found Negative. Gastrointestinal: Positive for: Abdominal Pain (suprapubic. ) Genitourinary: Positive for: Vaginal Discharge (clear, thin.) Physical Exam - Physical Exam Appears: Non-toxic, No Acute Distress Skin: Warm, Dry Head: Atraumatic, Normacephalic Eye(s): bilateral: Normal Inspection, PERRL, EOMI Nose: Normal Oral Mucosa: Moist Neck: Normal ROM Chest: Symmetrical, No Deformity Cardiovascular: Rhythm Regular, No Murmur Respiratory: Normal Breath Sounds, No Rales, No Rhonchi, No Wheezing Gastrointestinal/Abdominal: Soft, Tenderness (to suprapubic area. ) Pelvic: Cervical Motion Tenderness, Other (Normal mark. (-) Adnexal tenderness.) Extremity: Bilateral: Atraumatic, Normal Color And Temperature, Normal ROM Neurological/Psych: Oriented x3, Normal Speech ED Course And Treatment - Laboratory Results Result Diagrams: 09/15/18 09:18 09/15/18 09:18 Lab Results: Total Bilirubin 0.3 mg/dL (0.2-1.3) 09/15/18 09:18 AST 23 U/L (14-36) 09/15/18 09:18 ALT 15 U/L (9-52) 09/15/18 09:18 Alkaline Phosphatase 61 U/L (38-126) 09/15/18 09:18 Total Protein 7.1 g/dL (6.3-8.3) 09/15/18 09:18 Albumin 4.2 g/dL (3.5-5.0) 09/15/18 09:18 Globulin 2.9 gm/dL (2.2-3.9) 09/15/18 09:18 Albumin/Globulin Ratio 1.5 (1.0-2.1) 09/15/18 09:18 Lipase 61 U/L (23-300) 09/15/18 09:18 Urine Color Yellow (YELLOW) 09/15/18:18 Urine Clarity Hazy (Clear) 09/15/18:18 Urine pH 5.0 (5.0-8.0) 09/15/18 09:18 Ur Specific Proctor 1.019 (1.003-1.030) 09/15/18 09:18 Urine Protein 1+ mg/dL (NEGATIVE) H 09/15/18 09:18 Urine Glucose (UA) Normal mg/dL (Normal) 09/15/18 09:18 Urine Ketones Negative mg/dL (NEGATIVE) 09/15/18:18 Urine Blood 3+ (NEGATIVE) H 09/15/18 09:18 Urine Nitrate Negative (NEGATIVE) 09/15/18 09:18 Urine Bilirubin Negative (NEGATIVE) 09/15/18 09:18 Urine Urobilinogen Normal mg/dL (0.2-1.0) 09/15/18 09:18 Ur Leukocyte Esterase Neg Wil/uL (Negative) 09/15/18 09:18 Urine WBC (Auto) 4 /hpf (0-5) 09/15/18 09:18 Urine RBC (Auto) 22 /hpf (0-3) H 09/15/18 09:18 Ur Squamous Epith Cells 5 /hpf (0-5) 09/15/18 09:18 Urine Bacteria Rare (<OCC) 09/15/18 09:18 Beta HCG, Quant 640.31 mIU/ML 09/15/18 09:18 O2 Sat by Pulse Oximetry: 97 (RA) Pulse Ox Interpretation: Normal - CT Scan/US ABD/Pelvis Transvaginal US Other Rad Studies (CT/US): Read By Radiologist CT/US Interpretation: FINDINGS: UTERUS: Measures 10.3 x 5.4 x 5.4 cm. Normal in size and appearance. No fibroid or other mass lesion seen. ENDOMETRIUM: Measures 10.7 mm in diameter. No evidence of intrauterine . CERVIX: No cervical abnormality identified. RIGHT OVARY: Measures 3 x 2.1 x 2.3 cm. There is heterogeneous rounded structure adjacent to the right ovary measures 1.8 x 1.9 x 1.6 centimeter. The possibility of right adnexal ectopic cannot be totally excluded. LEFT OVARY: Measures 2.5 x 2.1 x 2.3 cm. No solid mass. Normal flow. There is 1.1 x 0.7 x 0.9 centimeter cyst in the left adnexa likely represent prominent follicle. FREE FLUID: Small to moderate amount of free fluid in the pelvis noted. OTHER FINDINGS: None. IMPRESSION: No eviden ce of intrauterine . Complex heterogeneous rounded structure seen adjacent to the right ovary. The possibility of ectopic should be excluded. Small to moderate amount of free fluid in the pelvis noted. Medical Decision Making Medical Decision Making: Initial plan: -Pelvis/Transvaginal US -Blood sent -Toradol -Tylenol -Urine culture -Urinalysis Progress/Update: Patient notes of continued suprapubic pain. Given K-Dur Rocephin and Zithromax. 11:32am : Spoke with OB Hospitalist on-call, Dr. Wren, agreed to see the patient. 1:35pm : Dr. Wren is in the ER, will administer methotrexate, pt to return to the ED on 09.18.18 and 09.21.18 for repeat of beta HCG, on 09.18.18 pt to receive another dose of methotrexate. Patient is stable for discharge home. Disposition Counseled Patient/Family Regarding: Studies Performed, Diagnosis, Need For Followup - Disposition Referrals: [facility] [Outside] Disposition: HOME/ ROUTINE Disposition Time: 13:41 Condition: STABLE Additional Instructions: follow up in ER on 09/18/18 for repeat bhcg and another dose of methotrexate follow up in ER on 09/21/18 for repeat bhcg return to ER soon if symptoms develop Instructions: Ectopic (DC) Forms: [facility] (Chilean), General Discharge Instructions - Clinical Impression Clinical Impression: Ectopic - Scribe Statement The provider has reviewed the documentation as recorded by the Scribe (Azra Aceves) Provider Attestation: All medical record entries made by the Scribe were at my direction and personally dictated by me. I have reviewed the chart and agree that the record accurately reflects my personal performance of the history, physical exam, medical decision making, and the department course for this patient. I have also personally directed, reviewed, and agree with the discharge instructions and disposition.
[2018-09-15] MEDS ORDERED: Methotrexate 50 mg/2 ml Inj IM ONE ×2 (13:59→14:30)
--- NOTE | 2018-09-15 14:15 | CP.PCM.CON ---
History of Present Illness - History of Present Illness History of Present Illness: PT IS 37 presented to the ER today with complaints of suprapubic pain 10/10, back pain and pain that radiates down her leg x 1 day. Pt was found to be with BHCG 640. Pelvic sono noted a heterogenous complex structure next to the right ovary suggestive of ectopic . POBHX:1998 2008 C/S : PLACENTAL ABRUPTION 2015 C/S : REPEAT C/S PGYNHX; + GC/CC PMHX: NONE PSHX; GALLBLADDER REMOVAL, UMBILICALHERNIA REPAIR. SOCIAL: +MJ, CIGARETTE SMOKER. MEDS: NONE ALL: NKDA/ Review of Systems - Review of Systems Systems not reviewed;Unavailable: Acuity of Condition (juan r.) All systems: reviewed and no additional remarkable complaints except - Constitutional Constitutional: As Per HPI. absent: Anorexia, Chills, Daytime Sleepiness, Excessive Sweating, Fatigue, Fever, Frequent Falls, Headache, Increased Appetite, Lethargy, Malaise, Night Sweats, Snoring, Sleep Apnea, Weight Gain, We ight Loss, Weakness, Other - EENT Eyes: absent: As Per HPI, Blind Spots, Blurred Vision, Change in Vision, Decreased Night Vision, Diplopia, Discharge, Dry Eye, Exophthalmos, Floaters, Irritation, Itchy Eyes, Loss of Peripheral Vision, Pain, Photophobia, Requires Corrective Lenses, Sees Flashes, Spots in Vision, Tunnel Vision, Other Visual Disturbances, Loss of Vision, Other Ears: absent: As Per HPI, Decreased Hearing, Ear Discharge, Ear Pain, Tinnitus, Abnormal Hearing, Disequilibrium, Dizziness, Other Nose/Mouth/Throat: absent: As Per HPI, Epistaxis, Nasal Congestion, Nasal Discharge, Nasal Obstruction, Nasal Trauma, Nose Pain, Post Nasal Drip, Sinus Pain, Sinus Pressure, Bleeding Gums, Change in Voice, Dental Pain, Dry Mouth, Dysphagia, Halitosis, Hoarsness, Lip Swelling, Mouth Lesions, Mouth Pain, Odynophagia, Sore Throat, Throat Swelling, Tongue Swelling, Facial Pain, Neck Pain, Neck Mass, Other - Breasts Breasts: absent: As Per HPI, Change in Shape, Mass, Pain, Nipple Discharge, Nipple Inversion, Skin Changes, Swelling, Other - Cardiovascular Cardiovascular: absent: As Per HPI, Acrocyanosis, Chest Pain, Chest Pain at Rest, Chest Pain with Activity, Claudication, Diaphoresis, Dyspnea, Dyspnea on Exertion, Edema, Irregular Heart Rhythm, Pain Radiating to Arm/Neck/Jaw, Leg Edema, Leg Ulcers, Lightheadedness, Orthopnea, Palpitations, Paroxysmal Nocturnal Dyspnea, Pedal Edema, Radiating Pain, Rapid Heart Rate, Slow Heart Rate, Syncope, Other - Respiratory Respiratory: absent: As Per HPI, Cough, Dyspnea, Hemoptysis, Dyspnea on Exertion, Wheezing, Snoring, Stridor, Pain on Inspiration, Chest Congestion, Excessive Mucous Production, Change in Mucous Color, Pain with Coughing, Other - Gastrointestinal Gastrointestinal: Abdominal Pain (suprapubic pain) - Genitourinary Genitourinary: Flank Pain - Menstruation Menstruation: Amenorrhea - Musculoskeletal Musculoskeletal: absent: As Per HPI, Abnormal Gait, Arthralgias, Atrophy, Back Pain, Deformity, Joint Swelling, Limited Range of Motion, Loss of Height, Muscle Cramps, Muscle Weakness, Myalgias, Neck Pain, Numbness, Radiating Pain into Limb, Stiffness, Tingling, Other - Integumentary Integumentary: absent: As Per HPI, Acne, Alopecia, Bleeding Lesions, Change in Hair, Change in Nails, Change in Pigmentation, Changing Lesions, Dry Skin, Erythema, Furuncle, Hirsutism, Lesions, New Lesions, Non-Healing Lesions, Photosensitivity, Pruritus, Rash, Skin Pain, Skin Ulcer, Sores, Striae, Swelling, Unusual Bruising, Wounds, Jaundice, Other - Neurological Neurological: absent: As Per HPI, Abnormal Gait, Abnormal Hearing, Abnormal Movements, Abnormal Speech, Behavioral Changes, Burning Sensations, Confusion, Convulsions, Disequilibrium, Dizziness, Numbness, Focal Weakness, Frequent Falls, Headaches, Lack of Coordination, Loss of Vision, Memory Loss, Paresthesias, Radicular Pain, Restless Legs, Sensory Deficit, Syncope, Tingling, Tremor, Vertigo, Weakness, Other Visual Disturbances, Other - Psychiatric Psychiatric: absent: As Per HPI, Abnormal Sleep Pattern, Anhedonia, Anxiety, Auditory Hallucinations, Behavioral Changes, Change in Appetite, Change in Libido, Confusion, Depression, Difficulty Concentrating, Hallucinations, Homicidal Ideation, Hopelessness, Irritability, Memory Loss, Mood Swings, Panic Attacks, Paranoia, Suicidal Ideation, Visual Hallucinations, Tactile Hallucinations, Other Past Patient History - Infectious Disease Hx of Infectious Diseases: None - Tetanus Immunizations Tetanus Immunization: Unknown - Past Medical History & Family History Past Medical History?: No Past Family History: Reviewed and not pertinent - Past Social History Smoking Status: Heavy Smoker > 10 Cigarettes Daily Chewing Tobacco Use: No Cigar Use: No Alcohol: Occasional Drugs: Cannabis Home Situation {Lives}: With Family - GASTROINTESTINAL Hx Pancreatitis: Yes - PSYCHIATRIC Hx Substance Use: No - SURGICAL HISTORY Hx Cholecystectomy: Yes - ANESTHESIA Hx Anesthesia: Yes Hx Anesthesia Reactions: No Meds Allergies/Adverse Reactions: Allergies Allergy/AdvReac Type Severity Reaction Status Date / Time No Known Allergies Allergy Verified 09/15/18 09:02 - Medications Medications: Current Medications Methotrexate (Methotrexate) 82 mg IM ONCE ONE Stop: 09/15/18 14:00 Physical Exam - Constitutional Appears: Well, Non-toxic, Toxic, No Acute Distress, In Acute Distress, Unkempt, Older Than Stated Age, Younger Than Stated Age, Combative, Agitated, Confused, Cachectic, Chronically Ill, Other - Head Exam Head Exam: ATRAUMATIC, NORMAL INSPECTION - Eye Exam Eye Exam: Conjunctival injection, EOMI, Normal appearance, Nystagmus, Periorbital swelling, Periorbital tenderness, PERRL, Scleral icterus Pupil Exam: Fixed, Irregular, Miosis, Mydriatic, NORMAL ACCOMODATION, PERRL, Unequal - ENT Exam ENT Exam: Mucous Membranes Dry, Mucous Membranes Moist, Normal Exam, Normal External Ear Exam, Normal Oropharynx, TM's Normal Bilaterally - Neck Exam Neck exam: Positive for: Full Rom, Lymphadenopathy, Meningismus, Normal Inspection, Tenderness, Thyromegaly - GI/Abdominal Exam GI & Abdominal Exam: Guarding, Normal Bowel Sounds, Soft - Rectal Exam Rectal Exam: Deferred Results - Vital Signs Recent Vital Signs: Last Vital Signs Temp 97.9 F 09/15/18 08:58 Pulse 74 09/15/18 11:13 Resp 19 09/15/18 11:13 BP 112/75 09/15/18 11:13 Pulse Ox 97 09/15/18 13:50 - Labs Result Diagrams: 09/15/18 09:18 09/15/18 09:18 Labs: Laboratory Results - last 24 hr 09/15/18 09/15/18 09/15/18 09:18 09:18 09:18 WBC 13.0 H D RBC 4.92 Hgb 13.5 Hct 40.9 MCV 83.0 MCH 27.5 MCHC 33.1 RDW 13.7 Plt Count 257 MPV 9.4 Neut % (Auto) 60.4 Lymph % (Auto) 28.4 Hickman % (Auto) 6.4 Eos % (Auto) 3.7 Baso % (Auto) 1.1 Neut # (Auto) 7.9 H Lymph # (Auto) 3.7 Hickman # (Auto) 0.8 Eos # (Auto) 0.5 Baso # (Auto) 0.1 Sodium 138 Potassium 3.1 L Chloride 105 Carbon Dioxide 25 Anion Gap 12 BUN 8 Creatinine 0.7 Est GFR ( Amer) > 60 Est GFR (Non-Af Amer) > 60 Random Glucose 99 Calcium 8.8 Total Bilirubin 0.3 AST 23 ALT 15 Alkaline Phosphatase 61 Total Protein 7.1 Albumin 4.2 Globulin 2.9 Albumin/Globulin Ratio 1.5 Lipase 61 Beta HCG, Quant 640.31 Urine Color Yellow Urine Clarity Hazy Urine pH 5.0 Ur Specific [employer] [place] 1.019 Urine Protein 1+ H Urine Glucose (UA) Normal Urine Ketones Negative Urine Blood 3+ H Urine Nitrate Negative Urine Bilirubin Negative Urine Urobilinogen Normal Ur Leukocyte Esterase Neg Urine WBC (Auto) 4 Urine RBC (Auto) 22 H Ur Squamous Epith Cells 5 Urine Bacteria Rare Assessment & Plan - Assessment and Plan (Free Text) Assessment: RIGHT ECTOPIC 1) D/W PT FINDING OF RIGHT ECTOPIC - BCHG DONE - TYPE AND SCREEN ORDERED AND PENDING - AST/ALT: WNL - D/W PT OPTIONS FOR MANAGEMENT FOR ECTOPIC - I D/W PT MEDICAL MANAGEMENT WITH METHOTREXATE VS SURGICAL MANAGEMENT - I D/W THE PT RISKS, BENEFITS AND ALTERNATIVES TO EACH PROCEDURE AND PT OPTED FOR MEDICAL MANAGEMENT. - I D/W THE PATIENT THAT MEDICAL MANAGEMENT REQUIRES HER TO HAVE MULTIPLE FOLLOW UP VISIT. PT STATES THAT SHE DOES NOT HAVE INSURANCE BUT AGREED TO FOLLOW UP IN THE ER AND TO BE SEEN BY THE IN-HOUSE SENIOR SALES OPERATIONS ANALYST PHYSICIAN. - I D/W THE PATIENT TREATMENT WITH IM METHOTREXATE, PT LIVER FUNCTION TEST WERE NORMAL PRIOR TO GIVING THE INJECTION. PT STATES SHE HAS NO CURRENT MEDICAL PROBLEMS. I D/W PT THE RISK OF METHOTREXATE, INCLUDING ABDOMINAL PAIN, NAUSEA, STOMATITIS...ETC. - I ALSO D/W THE PATIENT POSSIBLE RISKS OF ECTOPIC AND IF SHE MISSES HER FOLLOW UP AND TREATMENT. PT IS AWARE THAT THE ECTOPIC CAN GROW AND RUPTURE AND CAUSE A HEMOPERITONEUM AND POSSIBLE MATERNAL . PT IS AWARE AND STILL DECLINED SURGERY AND OPTED FOR MEDICAL MANAGEMENT - I D/W THE PATIENT THE 2 DOSE PROTOCOL FOR METHOTREXATE. PT WILL BE GIVEN 82MG IM TODAY (DAY 1) BASED UPON DOSING OF 50MG/M2. - PT SHOULD FOLLOW UP DAY 4 (SEP 18) AND GET A SECOND DOSE OF METHOTREXATE 82MG IM. AND HAVE REPEAT BHCG AND SONO DONE. - PT SHOULD THEN FOLLOW UP DAY 7. I ADVISED PT THAT IF THERE IS NOT A 15% D ECLINED IN BHCG FROM DAY 4-7 SHE NEEDS TO HAVE SURGERY FOR POSSIBLE FAILED OUTPATIENT TREATMENT FOR ECTOPIC . - 82MG IM METHOTREXATE GIVEN TO THE PATIENT.
[2018-09-15 14:56] VITALS: BP 111/74; PULSE 73; RESP 16; TEMP 98; O2SAT 98
== END 2018-09-15 14:54 | disposition home or self-care (01) ==
LOC: C.ER 08:46
DX: O00.90 Unspecified ectopic pregnancy without intrauterine pregnancy (principal); F17.210 Nicotine dependence, cigarettes, uncomplicated
CPT/HCPCS: 76830; 76856; 80053; 81001; 81025; 83690; 84702; 85025; 87086; 87491; 87591; 96372; 99285; J0696; J9250

== ENCOUNTER 2018-09-18 09:36 | Emergency (ER) | payer MEDICAID ==
[2018-09-18 09:36] VITALS: BMI 25.9
[2018-09-18 09:56] VITALS: O2SAT 96
--- NOTE | 2018-09-18 10:16 | C.PDOC ---
History Of Present Illness 38 year old female with no PMHx presents to the ED for follow up of possible ectopic . She was seen here on 09/15 for suprapubic/RLQ pain and found to have possible ectopic . OB saw patient and gave dose of methotrexate, patient was instructed to return today for repeat labs and imaging. Patient states she has some continued RLQ pressure. Denies any nausea, vomiting, dizziness, syncope, vaginal bleeding, urinary symptoms, or other complaints. Time Seen by Provider: 09/18/18 09:58 Chief Complaint (Nursing): Female Genitourinary History Per: Patient History/Exam Limitations: no limitations Onset/Duration Of Symptoms: Days Current Symptoms Are (Timing): Still Present Past Medical History Reviewed: Historical Data, Nursing Documentation, Vital Signs Vital Signs: Last Vital Signs Temp 98.5 F 09/18/18 09:53 Pulse 73 09/18/18 09:53 Resp 18 09/18/18 09:53 BP 106/70 09/18/18 09:53 Pulse Ox 96 09/18/18 09:53 - Medical History PMH: Back Problems, Pancreatitis Surgical History: Cholecystectomy - [facility] Procedures CLOSURE SKIN & SUBCUTANEOUS NEC (11/23/13) Family History: States: Unknown Family Hx - Social History Hx Tobacco Use: No Hx Alcohol Use: Yes Hx Substance Use: No - Immunization History Hx Tetanus Toxoid Vaccination: No Hx Influenza Vaccination: No Hx Pneumococcal Vaccination: No Review Of Systems Constitutional: Negative for: Fever, Chills Cardiovascular: Negative for: Chest Pain Respiratory: Negative for: Shortness of Breath Gastrointestinal: Positive for: Abdominal Pain (RLQ). Negative for: Nausea, Vomiting, Diarrhea Genitourinary: Negative for: Dysuria, Frequency, Hematuria, Vaginal Discharge, Vaginal Bleeding Neurological: Negative for: Weakness, Numbness, Dizziness Physical Exam - Physical Exam Appears: Non-toxic, No Acute Distress Skin: Warm, Dry Head: Atraumatic, Normacephalic Eye(s): bilateral: Normal Inspection, PERRL, EOMI Oral Mucosa: Moist Neck: Normal ROM Chest: Symmetrical Cardiovascular: Rhythm Regular, No Murmur Respiratory: Normal Breath Sounds, No Accessory Muscle Use Gastrointestinal/Abdominal: Soft, No Tenderness, No Distention, No Guarding, No Rebound Back: Normal Inspection, No CVA Tenderness Extremity: Bilateral: Atraumatic, Normal Color And Temperature, Normal ROM Neurological/Psych: Oriented x3, Normal Speech ED Course And Treatment O2 Sat by Pulse Oximetry: 96 (RA) Pulse Ox Interpretation: Normal - CT Scan/US Transvag/Pelvic US Other Rad Studies (CT/US): Read By Radiologist, Radiology Report Reviewed CT/US Interpretation: Accession No. : [id number]. Patient Name / ID : AIDA MARQUEZ / [id number]. Exam Date : 09/18/2018 11:11:17 ( Approved ). Study Comment : Sex / Age : F / [id number]. Creator : Gary Lucas MD. Dictator : Gary Lucas MD. Slate Mixer : Technical Specialist : Gary Lucas MD. Approver2 : Report Date : 09/18/2018 11:47:48. My Comment : . Date of service: 09/18/2018. HISTORY: right ectopic , followup US. Last which appears reported 08/04/2018 suggesting 6 week 3 day gestation. COMPARISON: Transabdominal and transvaginal pelvic ultrasound 09/15/2018. TECHNIQUE: Transvaginal pelvic ultrasound was performed with longitudinal and transverse images submitted for interpretation. FINDINGS: UTERUS: Measures 9.5 x 5.1 x 6.3 cm. Normal in size and appearance anteverted once again. Lobular margins to the right side of the uterine fundus anteriorly may indicate an underlying isoechoic fibroid though this is not definite. A defined fibroid is not clearly identified specifically. ENDOMETRIUM: Measures 14.6 mm in diameter. Endometrium main somewhat heterogeneous in echotexture but without gestational yolk sac appreciable this time. CERVIX: No cervical abnormality identified. RIGHT OVARY: Measures 2.9 x 2.0 x 1.9 cm. A solid or complex mass at the inferior margins right ovary remain in question measuring 2.7 x 1.8 x 2.1 cm. Normal flow. No definitive ectopic identified at this time. LEFT OVARY: Measures 2.7 x 1.9 x 2.9 cm. No solid mass. Normal flow. FREE FLUID: No significant free fluid noted. OTHER FINDINGS: None. IMPRESSION: No definitive intrauterine gestation appreciated or definitive ectopic at this time either. A solid lesion remains at the inferior margin of the right ovary and could reflect an early ectopic gestation as this is only 3 days distant from the prior transvaginal pelvic ultrasound 09/05/2018. By LMP, we should be able to see a gestation at this time given 6 week 3 day gestation based on LMP 08/04/2018. This argues against ectopic gestation being present. Nevertheless, this is an indeterminate examination for ectopic gestation and follow-up serial beta HCG analysis is advised as well as ultrasound in 1 week. Medical Decision Making Medical Decision Making: Plan: - Repeat beta-HCG - Transvaginal/Pelvic US Labs reviewed, beta-HCG declined: 09/15/18 - 640.31 09/18/18 - 133.06 Ultrasound reviewed, and discussed with patient. Repeat ultrasound recommended by radiologist in 1 week. Consulted MADISON Burleson building stonecutter and discussed case and diagnostic testing results in depth. Advised that no second dose of MTX is indicated secondary to decrease in beta hcg >50%, indicating successful medical treatment of ectopic . Advised patient to return on 09/21 for repeat bloodwork to ensure further decline in hcg. Patient counseled regarding the importance of follow up for repeat beta-HCG on 09/21, as well as given return precautions including intractable abdominal pain, heavy vaginal bleeding, syncope, lightheadedness, or any other new/worsening symptoms. Patient verbalized understanding and states she will return as directed. Patient is A&Ox3, reports decreased pain/pressure with medication, ambulating with steady gait, with vital signs stable for discharge. 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 - Scribe Statement The provider has reviewed the documentation as recorded by the Scribe Veronica Jama All medical record entries made by the Alek were at my direction and personally dictated by me. I have reviewed the chart and agree that the record accurately reflects my personal performance of the history, physical exam, medical decision making, and the department course for this patient. I have also personally directed, reviewed, and agree with the discharge instructions and disposition.
--- NOTE | 2018-09-18 11:51 | US ---
Date of service: 09/18/2018 HISTORY: right ectopic , followup US. Last which appears reported 08/04/2018 suggesting 6 week 3 day gestation. COMPARISON: Transabdominal and transvaginal pelvic ultrasound 09/15/2018. TECHNIQUE: Transvaginal pelvic ultrasound was performed with longitudinal and transverse images submitted for interpretation. FINDINGS: UTERUS: Measures 9.5 x 5.1 x 6.3 cm. Normal in size and appearance anteverted once again. Lobular margins to the right side of the uterine fundus anteriorly may indicate an underlying isoechoic fibroid though this is not definite. A defined fibroid is not clearly identified specifically. ENDOMETRIUM: Measures 14.6 mm in diameter. Endometrium main somewhat heterogeneous in echotexture but without gestational yolk sac appreciable this time. CERVIX: No cervical abnormality identified. RIGHT OVARY: Measures 2.9 x 2.0 x 1.9 cm. A solid or complex mass at the inferior margins right ovary remain in question measuring 2.7 x 1.8 x 2.1 cm. Normal flow. No definitive ectopic identified at this time. LEFT OVARY: Measures 2.7 x 1.9 x 2.9 cm. No solid mass. Normal flow. FREE FLUID: No significant free fluid noted. OTHER FINDINGS: None. IMPRESSION: No definitive intrauterine gestation appreciated or definitive ectopic at this time either. A solid lesion remains at the inferior margin of the right ovary and could reflect an early ectopic gestation as this is only 3 days distant from the prior transvaginal pelvic ultrasound 09/05/2018. By LMP, we should be able to see a gestation at this time given 6 week 3 day gestation based on LMP 08/04/2018. This argues against ectopic gestation being present. Nevertheless, this is an indeterminate examination for ectopic gestation and follow-up serial beta HCG analysis is advised as well as ultrasound in 1 week.
[2018-09-18 12:40] VITALS: BP 101/59; PULSE 74; RESP 74; TEMP 98.1
== END 2018-09-18 12:50 | disposition home or self-care (01) ==
LOC: C.ER 09:36
DX: O00.90 Unspecified ectopic pregnancy without intrauterine pregnancy (principal); Z3A.01 Less than 8 weeks gestation of pregnancy

== ENCOUNTER 2018-09-21 15:42 | Emergency (ER) | payer MEDICAID ==
[2018-09-21 15:43] VITALS: BMI 25.9
[2018-09-21 16:03] VITALS: RESP 18
--- NOTE | 2018-09-21 16:19 | C.PDOC ---
History Of Present Illness 38 year old female patient presents to the emergency room for repeat labs. Patient was diagnosed with ectopic on 09/15 and was treated with methotrexate. Patient reports she has light vaginal bleeding and no pain. Patient has no complaints or associated symptoms Time Seen by Provider: 09/21/18 16:08 Chief Complaint (Nursing): Medical Clearance History Per: Patient History/Exam Limitations: no limitations Onset/Duration Of Symptoms: Days Current Symptoms Are (Timing): Still Present Past Medical History Reviewed: Historical Data, Nursing Documentation, Vital Signs Vital Signs: Last Vital Signs Temp 98.9 F 09/21/18 16:00 Pulse 82 09/21/18 16:00 Resp 18 09/21/18 16:00 BP 107/68 09/21/18 16:00 Pulse Ox 99 09/21/18 16:00 - Medical History PMH: Back Problems, Pancreatitis Surgical History: Cholecystectomy - [facility] Procedures CLOSURE SKIN & SUBCUTANEOUS NEC (11/23/13) Family History: States: Unknown Family Hx - Social History Hx Tobacco Use: No Hx Alcohol Use: Yes Hx Substance Use: Yes - Immunization History Hx Tetanus Toxoid Vaccination: No Hx Influenza Vaccination: No Hx Pneumococcal Vaccination: No Review Of Systems Constitutional: Negative for: Fever ENT: Negative for: Ear Pain Cardiovascular: Negative for: Chest Pain Respiratory: Negative for: Shortness of Breath Gastrointestinal: Negative for: Nausea, Vomiting, Abdominal Pain Genitourinary: Positive for: Vaginal Bleeding (light). Negative for: Frequency Musculoskeletal: Negative for: Neck Pain Physical Exam - Physical Exam Appears: Non-toxic, No Acute Distress Skin: Warm, Dry Head: Atraumatic, Normacephalic Eye(s): bilateral: Normal Inspection Oral Mucosa: Moist Throat: Normal Chest: Symmetrical Cardiovascular: Rhythm Regular Respiratory: Normal Breath Sounds Gastrointestinal/Abdominal: Bowel Sounds (normal; active), Soft, No Tenderness, No Guarding Back: No CVA Tenderness Extremity: Normal ROM (x4) Neurological/Psych: Oriented x3, Normal Speech Gait: Steady ED Course And Treatment O2 Sat by Pulse Oximetry: 99 (RA) Pulse Ox Interpretation: Normal Medical Decision Making Medical Decision Making: Plan: -- HCG Per prior records, beta-HCG 09/15/18 - 640.31 09/18/18 - 133.06 Today 09/21/18 - 36.95 BetaHCG is still trending down. Patient is stable for discharge. She is advised to follow up with control tower radio operator or continue to return to ER weekly until BetaHCG reaches 0. She should also have another Ultrasound in one week. Disposition Counseled Patient/Family Regarding: Diagnosis, Need For Followup - Disposition [facility] Disposition: HOME/ ROUTINE Disposition Time: 17:04 Condition: STABLE Additional Instructions: You were evaluated today to check BetaHCG level after ectopic . These are the values: 09/15/18 - 640.31 09/18/18 - 133.06 09/21/18 - 36.95 BetaHCG is trending down. Follow up with control tower radio operator or continue to return to ER weekly until BetaHCG reaches 0. You should have Ultrasound in one week. 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 - Scribe Statement The provider has reviewed the documentation as recorded by the Alek Jackson Do All medical record entries made by the Scribe were at my direction and personally dictated by me. I have reviewed the chart and agree that the record accurately reflects my personal performance of the history, physical exam, medical decision making, and the department course for this patient. I have also personally directed, reviewed, and agree with the discharge instructions and disposition.
[2018-09-21 17:13] VITALS: BP 110/62; PULSE 80; TEMP 98.8
[2018-09-21 17:37] VITALS: O2SAT 99
== END 2018-09-21 17:13 | disposition home or self-care (01) ==
LOC: C.ER 15:42
DX: O00.90 Unspecified ectopic pregnancy without intrauterine pregnancy (principal); Z04.89 Encounter for examination and observation for other specified reasons